=== PATIENT | female | born 1995 | race Caucasian/White ===

== ENCOUNTER 2021-12-07 17:18 | Inpatient (IN) | payer OTHER ==
[~2021-12-07] VITALS: Ht 157.5 cm; Wt 59.0 kg
--- NOTE | 2021-12-07 18:25 | NUR ---
RT COLLECTED RAPID COVID 19, RSV, AND FLU SWAB PER DR REQUEST USING IN HOUSE LAB WITH NO COMPLICATIONS AT THIS TIME.
--- NOTE | 2021-12-08 02:46 | PR ---
[facility] [address] [place], [place] [address] Signed Progress Notes IP Datetime Report Generated by COLEMAN: 12/08/2021 02:45 PROGRESS NOTES: [id number] Impression: Normal Progression of Labor; Reassuring Heart Rate Plan: Continue Present Management; Anticipate Vaginal Delivery VITAL SIGNS: [id number] Vital Signs: Reviewed; Within Normal Limits EXAM: [id number] Dilatation: 9.5 Effacement: 80 Station: 1 MEMBRANES: [id number] Pooling: Negative Nitrazine: Positive Comments: Started on low-dose pitocin at 1931 Progressing well: 3cm prior to epidural, 8cm after successful placement Continue current management, anticipate FETUS A: [id number] FHR Baseline: 125 Variability: Moderate 6-25bpm Accelerations: 15X15 Decelerations: None FHR Category: Category I Presentation: Vertex Comments on Fetus A: No evidence of acidemia FETUS B: [id number] Signing Physician: Geeta Claudio DO Copies: ~ *Electronically Signed* 12/08/21 0245 GEETA CLAUDIO DO PATIENT NAME: BJ MORGAN PROGRESS NOTE DATE OF : [birth year] PHYSICIAN: GEETA CLAUDIO DO RPT #: [id number] REPORT IS CONFIDENTIAL AND NOT TO BE RELEASED WITHOUT AUTHORIZATION
--- NOTE | 2021-12-09 09:48 | PR ---
[facility] [address] [place], [place] [address] Signed PP Progress Notes Datetime Report Generated by CPN: 12/09/2021 09:48 SUBJECTIVE: [id number] Pain: Within Normal Limits Nausea/Vomiting: Denies Flatus: Yes Vital Signs: [id number] Vital Signs: Reviewed; Within Normal Limits Cardiovascular: Normal Respiratory: Normal Abdomen/Uterus: Normal Lochia: Normal Vulva/Perineum: Not Done Breasts: Not Done CVA Tenderness: Normal Extremities: Normal Incision: Not Applicable Progress: Normal Exam Comments: Fundus firm U-2 nontender IMPRESSION/PLAN/PROCEDURES: [id number] Impression: Normal Progression Plan: Discharge Progress Notes: Pt seen and examined. Doing well. Ambulating, voiding, and tolerating full diet. Pain and lochia minimal. Breasfeeding well. Pt w/ continued spinal RAMOS but declines another attempt at blood patch. Desires d/c home. Reviewed d/c instructions in detail. Signing Physician: Poly Shaw DO Copies: ~ *Electronically Signed* 12/09/21 0948 POLY SHAW DO PATIENT NAME: BJ MORGAN PROGRESS NOTE DATE OF : 97 PHYSICIAN: POLY SHAW DO RPT #: [id number] REPORT IS CONFIDENTIAL AND NOT TO BE RELEASED WITHOUT AUTHORIZATION
== END 2021-12-09 12:50 | disposition home or self-care (01) | DRG 807 ==
LOC: FBCO 17:18 → FBC 18:23
PROVIDERS: ADMIT Obstetrics & Gynecology; ATTEND Obstetrics & Gynecology
PROC: 10E0XZZ Delivery of Products of Conception, External Approach (ICD-10-PCS; principal; 2021-12-08)
PROC: 0UQMXZZ Repair Vulva, External Approach (ICD-10-PCS; 2021-12-08)
PROC: 3E0R3BZ Introduction of Anesthetic Agent into Spinal Canal, Percutaneous Approach (ICD-10-PCS; 2021-12-08)
PROC: 00HU33Z Insertion of Infusion Device into Spinal Canal, Percutaneous Approach (ICD-10-PCS; 2021-12-08)
DX: O42.02 Full-term premature rupture of membranes, onset of labor within 24 hours of rupture (principal); Z37.0 Single live birth; Z3A.38 38 weeks gestation of pregnancy; O70.0 First degree perineal laceration during delivery; Z79.899 Other long term (current) drug therapy; Z20.822 Contact with and (suspected) exposure to COVID-19
CPT/HCPCS: 01960; 59025; 85027; 86850; 86900; 86901; A9270; C9803; J2001; J2590; J2795; J7121; U0003